=== PATIENT | female | born 1990 ===

== ENCOUNTER 2017-08-24 12:52 | Emergency (ER) | payer MEDICAID ==
[2017-08-24 13:15] VITALS: BP 111/74; PULSE 81; RESP 16; TEMP 98.2; O2SAT 99; BMI 29.2
--- NOTE | 2017-08-24 14:35 | ED PDOC ---
Arrival/HPI - General Chief Complaint: Chest Pain - History of Present Illness Narrative History of Present Illness (Text): 08/24/17 14:49 Pt is a 27 yo F with no significant PMH presents to ED today due to chest pressure and hand tremors. Pt states that the pressure started this AM. Pt states the pressure is non-radiating and not associated with exertion. Pt states that she drinks coffee daily. Pt states that when pressure started, she felt like tremors happened shortly after. Currently, patient states that she has calmed down and symptoms have improved. Pt denies SOB, n/v/d, abdominal pain , palpitations, fever, chills, PARRA, or dizziness. Past Medical History - Psychiatric Hx Substance Use: No - Surgical History Hx Section: Yes Family/Social History Family/Social History: No Known Family HX Smoking Status: Never Smoked Hx Alcohol Use: Yes Frequency of alcohol use: Socially Hx Substance Use: No Allergies/Home Meds Allergies/Adverse Reactions: Allergies codeine Allergy (Verified 08/24/17 13:15) NAUSEA peanut Allergy (Verified 08/24/17 13:15) RASH Review of Systems - Review of Systems Constitutional: Normal Eyes: Normal ENT: Normal Respiratory: Normal Cardiovascular: Other (chest pressure) Gastrointestinal: Normal Genitourinary Female: Normal Musculoskeletal: Other (tremor) Skin: Normal Neurological: Normal Endocrine: Normal Hemo/Lymphatic: Normal Psychiatric: Normal Physical Exam Vital Signs Temp Pulse Resp BP Pulse Ox 08/24/17 13:02 98.2 F 81 16 111/74 99 Temperature: Afebrile Blood Pressure: Normal Pulse: Regular Respiratory Rate: Normal Appearance: Positive for: Well-Appearing Pain Distress: None Mental Status: Positive for: Alert and Oriented X 3 - Systems Exam Head: Present: Atraumatic, Normocephalic Extroacular Muscles: Present: EOMI Mouth: Present: Moist Mucous Membranes Neck: Present: Normal Range of Motion Respiratory/Chest: Present: Clear to Auscultation, Other (chest wall tender to palpation, left). No: Respiratory Distress, Accessory Muscle Use, Wheezes, Rales Cardiovascular: Present: Regular Rate and Rhythm, Normal S1, S2. No: Murmurs, Rub, Gallop Abdomen: Present: Tenderness. No: Distention, Peritoneal Signs, Guarding Upper Extremity: Present: Normal Inspection Lower Extremity: Present: Normal Inspection Neurological: Present: GCS=15 Skin: Present: Warm, Dry, Normal Color Medical Decision Making ED Course and Treatment: 08/24/17 14:52 Assessment: 27 yo F presents with left sided chest pressure and UE tremor. Plan: - EKG showed NSR Discussed findings with patient. As CP was reproducible, cardiac source is unlikely. Pt was advised to reduce caffeine and use motrin as needed. Chest pain was further discussed and patient was advised of signs and symptoms to look for that require emergency evaluation. However, patient was told to return to ED if symptoms worsen overall. Disposition/Present on Arrival - Present on Arrival Any Indicators Present on Arrival: No History of DVT/PE: No History of Uncontrolled Diabetes: No Urinary Catheter: No History of Decub. Ulcer: No History Surgical Site Infection Following: None - Disposition Have Diagnosis and Disposition been Completed?: Yes Diagnosis: Atypical chest pain Disposition: HOME/ ROUTINE Disposition Time: 14:36 Patient Problems: Current Active Problems Problem Status Onset Atypical chest pain Acute Condition: GOOD Discharge Instructions (ExitCare): Chest Pain (ED) Additional Instructions: 1. Take Motrin as needed 2. Avoid caffeinated drinks 3. Return to ED if chest pain worsens, increased shortness of breath or chest pain with activity, chest pain that radiates to left arm Prescriptions: Ibuprofen [Motrin] 400 mg PO TID PRN #15 tab PRN Reason: Pain, Mild (1-3) Referrals: Cecilio Squires MD [Primary Care Provider] - Follow up with primary Forms: [employer] [facility] (Turkmen)
--- NOTE | 2017-08-25 08:48 | CARD ---
APPROVED REPORT EKG Measurement Heart [id number] <Conclusion> Normal sinus rhythm with sinus arrhythmia Normal ECG
== END 2017-08-24 14:00 | disposition home or self-care (01) ==
LOC: ED 12:52
DX: R07.89 Other chest pain (principal)

== ENCOUNTER 2018-09-15 21:38 | Emergency (ER) | payer MEDICAID ==
[2018-09-15 22:08] VITALS: RESP 18; TEMP 99.3; BMI 28.3
--- NOTE | 2018-09-15 23:05 | ED PDOC ---
Arrival/HPI - General Chief Complaint: Cough, Cold, Congestion Time Seen by Provider: 09/15/18 21:55 Historian: Patient - History of Present Illness Narrative History of Present Illness (Text): 09/16/18 00:18 28-year-old female complaining of flu-like symptoms which started yesterday, she reports that she has tactile fever, chills, body aches, cough, headache, nausea. States that she did have positive sick contacts from her other son. Otherwise reports no chest pain, shortness of breath, abdominal pain, diarrhea, recent travel, urinary symptoms. Past Medical History - Psychiatric Hx Substance Use: No - Surgical History Hx Section: Yes Family/Social History Family/Social History: No Known Family HX Smoking Status: Never Smoked Hx Alcohol Use: Yes Hx Substance Use: No Allergies/Home Meds Allergies/Adverse Reactions: Allergies codeine Allergy (Verified 09/15/18 22:08) NAUSEA peanut Allergy (Verified 09/15/18 22:08) RASH Review of Systems - Review of Systems Constitutional: Fatigue, Fevers ENT: absent: Sore Throat, Rhinorrhea, Epistaxis Respiratory: Cough. absent: SOB Cardiovascular: absent: Chest Pain, Palpitations Gastrointestinal: Nausea. absent: Abdominal Pain, Vomiting Genitourinary Female: absent: Dysuria, Frequency Musculoskeletal: absent: Arthralgias, Back Pain, Neck Pain Skin: absent: Rash, Pruritis, Skin Lesions Neurological: Headache. absent: Dizziness Physical Exam Vital Signs Temp Pulse Resp BP Pulse Ox 09/15/18 22:08 99.3 F 110 H 18 102/56 L 97 Temperature: Afebrile Blood Pressure: Normal Pulse: Tachycardic Respiratory Rate: Normal Appearance: Positive for: Well-Appearing, Non-Toxic, Comfortable Pain Distress: None Mental Status: Positive for: Alert and Oriented X 3 - Systems Exam Head: Present: Atraumatic, Normocephalic Pupils: Present: PERRL Extroacular Muscles: Present: EOMI Conjunctiva: Present: Normal Ears: Present: Normal, NORMAL TM Mouth: Present: Moist Mucous Membranes Pharnyx: Present: Normal. No: ERYTHEMA, EXUDATE Neck: Present: Normal Range of Motion. No: Meningeal Signs, Lymphadenopathy Respiratory/Chest: Present: Clear to Auscultation, Good Air Exchange. No: Respiratory Distress, Accessory Muscle Use Cardiovascular: Present: Regular Rate and Rhythm, Normal S1, S2. No: Murmurs Back: Present: Normal Inspection Upper Extremity: Present: Normal Inspection. No: Cyanosis, Edema Lower Extremity: Present: Normal Inspection. No: Edema Neurological: Present: GCS=15, CN II-XII Intact, Speech Normal, Motor Func Mary sly Intact, Normal Sensory Function, Gait Normal Skin: Present: Warm, Dry, Normal Color. No: Rashes Psychiatric: Present: Alert, Oriented x 3, Normal Insight, Normal Concentration Medical Decision Making ED Course and Treatment: 09/16/18 00:20 Rapid flu was positive. Patient notified of positive flu test. Given Tamiflu p.o. Advised to follow up with primary care physician in 1-2 days without fail. Advised to take medication as prescribed. Return to the emergency room at any time for any new or worsening symptoms. Patient states she fully agrees with and understands discharge instructions. States that she agrees with the plan and disposition. Verbalized and repeated discharge instructions and plan. I have given the patient opportunity to ask any additional questions. - Medication Orders Current Medication Orders: Discontinued Medications Oseltamivir Phosphate (Tamiflu Cap) 75 mg PO STAT STA; Protocol Stop: 09/15/18 22:59 - PA / CUT OFF SAW SET UP OPERATOR / Resident Statement MD/DO has reviewed & agrees with the documentation as recorded. Disposition/Present on Arrival - Present on Arrival Any Indicators Present on Arrival: No History of DVT/PE: No History of Uncontrolled Diabetes: No Urinary Catheter: No History of Decub. Ulcer: No History Surgical Site Infection Following: None - Disposition Have Diagnosis and Disposition been Completed?: Yes Diagnosis: Influenza Disposition: HOME/ ROUTINE Disposition Time: 23:00 Patient Plan: Discharge Condition: STABLE Discharge Instructions (ExitCare): Flu, Adult (DC) Additional Instructions: Thank you for letting us take care of you today. You were treated for influenza. The emergency medical care you received today was directed at your acute symptoms. If you were prescribed any medication, please fill it and take as directed. It may take several days for your symptoms to resolve. Return to the Emergency Department if your symptoms worsen, do not improve, or if you have any other problems. Please contact your doctor in 2 days for re-evaluation and follow up. Bring any paperwork you were given at discharge with you along with any medications you are taking to your follow up visit. Our treatment cannot replace ongoing medical care by a primary care provider (PCP) outside of the emergency department. Thank you for allowing the [facility] team to be part of your care today. Prescriptions: Ibuprofen [Motrin Tab] 600 mg PO QID PRN #20 tab PRN Reason: Fever >100.4 F Oseltamivir Phosphate [Tamiflu] 75 mg PO BID #10 capsule Referrals: Cecilio Squires MD [Primary Care Provider] - Follow up with primary Forms: [employer] (Surinamese), WORK NOTE
[2018-09-15 23:27] VITALS: BP 108/62; PULSE 89; O2SAT 99
== END 2018-09-15 23:20 | disposition home or self-care (01) ==
LOC: ED 21:38
DX: J11.1 Influenza due to unidentified influenza virus with other respiratory manifestations (principal)